=== PATIENT | male | born 1980 | race Caucasian/White ===

== ENCOUNTER 2017-01-20 13:40 | Emergency (ER) | payer OTHER ==
[~2017-01-20] VITALS: Ht 180.3 cm; Wt 86.4 kg
[~2017-01-20 13:40] MED LIST: LISI10TA2 PO; METH750T3 PO; OXYC-465 PO; TRAM50TA2 PO
[2017-01-20 13:48] VITALS: BP 136/80; RESP 15; O2SAT 98
--- NOTE | 2017-01-20 15:44 | ED.REPORT ---
HPI-General Illness Date of Service Jan 20, 2017 ED Provider: EdyErnesto Ismael A 36 year old male with a history of HTN and back surgery presents to the ED complaining of an abscess in his gums onset two days ago. The patient has had tooth pain in the affected area for the last two weeks. Associated symptoms include difficulty sleeping because of pain, dysphagia, throat pain, pain with eating, neck tenderness, and diaphoresis. The patient thinks that neck and throat pain may be related to drainage from abscess which he describes happening more during the night.He also reports facial swelling that has been relieved with icing. He denies any fever or chills. He reports that he has had teeth pulled in the past and that he has baseline gum flare-ups. He consistently brushes his teeth. The patient noramlly takes tylenol 600 and ibuprofen 800 to relieve pain from back surgery, but this medication has not relieved mouth pain. The patient also reports having throbbing pain in his right foot, reporting that he has a toe that needs to be broke and re-set. He reports an allergy to Benadryl and Vicodin but reports no other allergies to medications. He has had Percocet and tramadol in the past. He has an appointment to see Dr. Trinh on Sunday to get a referral to a signal operator for his foot and he has an appointment with . Pawel has an appointment to visit Grzegorz in one week for gum abscess. Nursing Notes Stated Complaint: ABSCESS ON GUMS/BLISTER ON TOES Chief Complaint: ENT & Mouth Nursing Notes Reviewed: Yes Allergies: Coded Allergies: diphenhydramine (Verified Allergy, Intermediate, Rash,Itching,, 01/20/17) No Known Allergies (Verified Allergy, Unknown, 09/21/14) hydrocodone (Verified Adverse Reaction, Intermediate, ABD UPSET, 01/20/17) Scheduled Amoxicillin (Amoxicillin) 500 Mg Tablet 500 MG PO TID Lisinopril (Lisinopril) 10 Mg Tablet 10 MG PO DAILY Methocarbamol (Methocarbamol) 750 Mg Tablet 750 MG PO TID Scheduled PRN Tramadol (Tramadol) 50 Mg Tablet 100 MG PO Q6H PRN PRN For Pain oxyCODONE-Acetaminophen 5-325 mg (oxyCODONE-Acetaminophen 5-325 mg) 1 Each Tablet 1 TAB PO Q6H PRN PRN For Pain oxyCODONE-Acetaminophen 7.5-325 mg (oxyCODONE-Acetaminophen 7.5-325 mg) 1 Each Tablet 1-2 TAB PO Q4 PRN PRN For Pain No more than 5 daily General Time Seen by MD: 15:43 Chief Complaint Other (gum abscess) Hx Obtained From: Patient Arrived By: Walk-in Sudden in Onset?: Yes Onset Occurred: 2 days ago Symptom Duration: Since onset Severity: Current: Moderate Severity: Maximum: Moderate Recent Healthcare: No recent doctor visit Similar Sx Previous: No Past Medical History Past Medical History Chronic back pain Hx of hypertension baseline gum flare ups has had teeth pulled in the past Past Surgical History spleen repair 17 years ago back surgery Family History noncontributory Smoking History Current Every Day Smoker Social History Alcohol Use: Denies alcohol use Drug Use: Denies drug use Other Social History: Good social support, , Lives with children, Local resident Ambulatory Status Independent Review of Systems painful abscess in gums. difficulty sleeping. dysphagia. pain with eating. neck tenderness. facial swelling. Full Review of Systems Constitutional: Denies: Chills, Fever Ears / Nose / Throat: Reports: Throat pain Skin: Reports Diaphoresis Complete sys rev & neg: except as marked. Physical Exam Vital Signs Vital Signs Date Time Temp Pulse Resp B/P Pulse Ox O2 Delivery O2 Flow Rate FiO2 01/20/17 13:48 36.3 85 15 136/80 98 Initial VS: Reviewed General/Constitutional: Awake, Alert Head / Eyes: Normocephalic, PERRL, EOMI tooth 13 is tender to percussion, with tenderness in the gums above the tooth. No gum swelling or drainage. ENT: Atraumatic, Mucous membranes moist Neck: Atraumatic, Full range of motion Respiratory / Chest: Atraumatic, Breath sounds NL, Breath sounds = bilat, No respiratory distress, No rales, No rhonchi, No wheezing Cardiovascular: Heart rate NL, Regular rhythm, Heart sounds NL, No gallop, No murmurs, No rubs Abdomen: Atraumatic, No guarding, No rebound Back: Atraumatic, Full range of motion Upper Extremities Upper Extremity / MS: Atraumatic, Full range of motion Wrist / Hand: Atraumatic, Full range of motion .5 cm laceration over right lateral 4th toe without surrounding erythema. Skin: Atraumatic, Warm, Dry Neurologic: Oriented X3, Speech NL Re-Eval/Medical Decision Time of Eval: 15:43 Re-Evaluation/Progress Note: Rechecked patient, explained diagnosis and plan for discharge. Patient understands and agrees with the plan. All questions addressed. Counseled Regarding: Diagnosis, Lab results, Need for follow-up, When/why to return to ED Discharge & Departure Primary Impression: Dental abscess Additional Impression: Tooth pain Disposition: Home Discharge Condition All VS Reviewed: Yes Condition: Stable Patient Instructions: Dental Abscess (ED) Additional Instructions: Take antibiotic and pain medication as directed. Please follow up with your dentist next week as scheduled as well as with your PCP for your foot pain. Return if you develop new or worsening symptoms. I hope you feel better soon. Referrals: Giovanna Blas DO (PCP) [facility] Attestation Portions of this note were transcribed by Tristen Holt. I, Dr. Snow personally performed the history, physical exam and medical decision-making; I reviewed and confirmed the accuracy of the information in the transcribed note. Signed by: Sherrill Kaufman, 01/20/2017 [id number]. copies to: Giovanna Blas Gary R DO Jan 20, 2017 15:44 Tristen Holt Jan 20, 2017 15:52
[2017-01-20] MEDS ORDERED: OXYC1TAB24 PO (16:04)
[2017-01-20] MEDS ORDERED: AMOX500T2 PO (16:04)
== END 2017-01-20 16:10 | disposition home or self-care (01) ==
LOC: SED 13:40
DX: K04.7 Periapical abscess without sinus (principal); S91.311A Laceration without foreign body, right foot, initial encounter; X58.XXXA Exposure to other specified factors, initial encounter; Y92.9 Unspecified place or not applicable; Y93.9 Activity, unspecified; Y99.9 Unspecified external cause status; I10 Essential (primary) hypertension; F17.200 Nicotine dependence, unspecified, uncomplicated; Z98.890 Other specified postprocedural states; Z88.5 Allergy status to narcotic agent; Z88.8 Allergy status to other drugs, medicaments and biological substances